=== PATIENT | female | born 1940 | race Caucasian/White ===

== ENCOUNTER → 2016-09-15 | Outpatient (REF) | payer MEDICARE ==
[2016-09-15 19:36] LABS: MEAN CORPUSCULAR HEMOGLOBIN 28.7 pg (27.0-33.0); MEAN CORPUSCULAR HGB CONC 33.4 g/dl (32.0-36.5); MEAN CORPUSCULAR VOLUME 86.2 fl (80.0-96.0); RED CELL DISTRIBUTION WIDTH 12.9 % (11.5-14.5); WHITE BLOOD COUNT 9.5 K/mm3 (4.0-10.0)
[2016-09-15 19:58] LABS: FOLATE > 24.0 NG/ML (>5.4); VITAMIN B12 LEVEL 345 PG/ML (247-911)
[2016-09-15 20:10] LABS: ALBUMIN 4.3 GM/DL (3.2-5.2); ALBUMIN/GLOBULIN RATIO 1.19 (1.00-1.93); ALKALINE PHOSPHATASE 74 U/L (45-117); ALT/SGPT 25 U/L (12-78); ANION GAP 12 MEQ/L (8-16); AST/SGOT 15 U/L (15-37); BILIRUBIN,TOTAL 0.5 MG/DL (0.2-1.0); BLOOD UREA NITROGEN 36 MG/DL (7-18); CALCIUM LEVEL 10.1 MG/DL (8.8-10.2); CARBON DIOXIDE LEVEL 25 MEQ/L (21-32); CHLORIDE LEVEL 104 MEQ/L (98-107); CREATININE FOR GFR 1.91 MG/DL (0.55-1.02); FREE T4 0.98 NG/DL (0.76-1.46); GLOMERULAR FILTRATION RATE 27.3 (>39); GLUCOSE, FASTING 88 MG/DL (83-110); POTASSIUM SERUM 4.3 MEQ/L (3.5-5.1); SODIUM LEVEL 141 MEQ/L (136-145); TOTAL PROTEIN 7.9 GM/DL (6.4-8.2)
== END ==
LOC: M SFHCADAM 16:46
PROVIDERS: ATTEND Family Medicine
DX: R53.83 Other fatigue (principal); E74.9 Disorder of carbohydrate metabolism, unspecified; K52.9 Noninfective gastroenteritis and colitis, unspecified; Z79.899 Other long term (current) drug therapy
CPT/HCPCS: 80053; 82607; 82746; 82784; 83036; 84439; 84443; 85027; 86256; G0463

== ENCOUNTER → 2016-09-30 | Outpatient (CLI) | payer MEDICARE ==
--- NOTE | 2016-09-30 14:09 | REPMRS ---
Patient History The patient states she has not had a clinical breast exam in over a year. Patient has history of skin cancer at age 31 and is nulliparous. Family history of breast cancer in mother at age 50 or over and breast cancer in maternal aunt. Benign excisional biopsy of the left breast, 1960. Digital Woman Screen Mammo: September 30, 2016 - Exam #: [id number] Bilateral CC and MLO view(s) were taken. Technologist: Morena Kirk, Technologist Prior study comparison: September 17, 2015, digital woman screen mammo performed at [facility]. September 26, 2014, digital woman screen mammo performed at [facility] [employer] [facility]. FINDINGS: There are scattered fibroglandular densities. There has been no change in the appearance of the mammogram from the prior studies. There is a mild amount of residual fibroglandular tissue which is fairly symmetric. There is no interval development of dominant mass, architectural distortion, or clustered microcalcification suggestive of malignancy. ASSESSMENT: BI-RADS/ACR category 1 mammogram. Negative. Recommendation Routine screening mammogram in 1 year (for women over age 40). This mammogram was interpreted with the aid of an FDA-approved computer-aided dectection system. Electronically Signed By: Pastor Weaver MD 09/30/16 1659
== END ==
LOC: M WHC 12:45
PROVIDERS: ATTEND Family Medicine
DX: Z12.31 Encounter for screening mammogram for malignant neoplasm of breast (principal)

== ENCOUNTER → 2016-12-02 | Outpatient (CLI) | payer MEDICARE ==
--- NOTE | 2016-12-10 07:59 | SLEEPCENT ---
DATE OF PROCEDURE: 12/02/2016 ORDERED BY: VANIA Iglesias Nocturnal polysomnography was performed for evaluation of sleep apnea syndrome symptoms in this patient with complaints of excessive somnolence and nonrestorative sleep. 9 hours and 16 minutes of data were reviewed. There were only 122 minutes of sleep identified. Sleep latency was prolonged at 124 minutes. Rapid eye movement (REM) was prolonged at 406 minutes. Sleep architecture showed poor progression. There were periods of wake during the test resulting in low sleep efficiency of 22%. The patient's EKG showed a sinus rhythm with an average heart rate of 78 beats per minute. There were some unifocal ventricular ectopic beats noted. EEG showed reasonably normal waveforms for awake and sleep. There were 36 respiratory events identified of 10 seconds in duration or greater for an apnea hypopnea index of 17.6. The events were primarily obstructive, not exclusive to sleep stage nor body posture. Arousals from respiratory events occurred 5.4 times per hour and oxygen desaturations were seen into the upper 80s. There was also some limb activity; 3 trains of 30 events were seen with a limb movement arousal index of 11.3. IMPRESSION: 1. Severe obstructive sleep apnea syndrome (G47.33). Apnea hypopnea index 17.6. 2. Periodic limb movement disorder (G47.61). Limb movement arousal index 11.3. RECOMMENDATION: The patient should be encouraged to return to the sleep disorder center for pressure therapy. In the interim, alcohol and sedative avoidance should be practiced and caution exercised during the operation of motor vehicles. Pending results of pressure therapy, interventions to reduce the frequency arousal from limb activity may also be necessary.
== END ==
LOC: M SLEEP 19:30
PROVIDERS: ATTEND Nurse Practitioner Adult Health
DX: G47.30 Sleep apnea, unspecified (principal)

== ENCOUNTER → 2017-01-05 | Outpatient (CLI) | payer MEDICARE ==
--- NOTE | 2017-01-12 09:39 | SLEEPCENT ---
DATE OF PROCEDURE: 01/05/2017 REQUESTING PROVIDER: Genet Fernandez NP INTERPRETATION: Nocturnal polysomnography was performed for the titration of pressure therapy in this patient with obstructive sleep apnea syndrome, apnea-hypopnea index of 17.6. For testing, the patient was fit with a [employer] Eson nasal mask of medium size, 4 cm of water pressure were applied to the circuit and the lights were extinguished. 8 hours and 39 minutes of data were reviewed. There were 273 minutes of sleep identified. Sleep latency was short at 18 minutes. Rapid eye movement (REM) latency was prolonged at 346 minutes. Sleep architecture improved late in the study with optimal pressure therapy but a period of wake between midnight and 2:00 resulted in reduced sleep efficiency of 53.2%. The electrocardiogram (EKG) showed a sinus rhythm with an average heart rate of 78 beats per minute. Electroencephalogram (EEG) showed normal waveforms for awake and sleep. Respiratory events were fully palliated with a CPAP to a pressure of +9. Limb activity prominent in the diagnostic study was less prominent during this test. There were two trains of 30 events. Limb movement arousal index was 9.7. IMPRESSION: 1. Obstructive sleep apnea syndrome (G47.33). 2. Periodic limb movement disorder (G47.61). RECOMMENDATIONS: Nightly use of pressure therapy at 9 cm of water should be sufficient to address the patient's respiratory events. Interventions to reduce the frequency or arousals from limb activity may be necessary to optimize sleep.
== END ==
LOC: M SLEEP 19:17
PROVIDERS: ATTEND Nurse Practitioner Adult Health
DX: G47.33 Obstructive sleep apnea (adult) (pediatric) (principal)

== ENCOUNTER → 2017-02-06 | Outpatient (REF) | payer MEDICARE ==
[2017-02-06 20:48] LABS: VITAMIN B12 LEVEL 418 PG/ML
[2017-02-06 20:49] LABS: FOLATE > 24.0 NG/ML
[2017-02-06 20:59] LABS: FERRITIN 357 NG/ML (8-252); PERCENT SATURATION 21.8 % (13.2-45.0); TOTAL IRON BINDING CAPACITY 285 UG/DL (250-450)
== END ==
LOC: M LAB REF 17:01
PROVIDERS: ATTEND Internal Medicine Nephrology
DX: D64.9 Anemia, unspecified (principal)

== ENCOUNTER → 2017-09-15 | Outpatient (REF) | payer MEDICARE ==
[2017-09-15 20:27] LABS: BASO % 0.5 % (0.0-1.0); EOS # 0.2 10^3/uL (0.0-0.50); EOS % 2.5 % (0.0-3.0); HEMATOCRIT 35.6 % (36.0-47.0); HEMOGLOBIN 11.1 g/dl (12.0-15.5); IMMATURE GRANULOCYTE % 0.4 % (0-3.0); LYMPH # 1.8 10^3/uL (1.5-4.5); LYMPH % 25.3 % (24.0-44.0); MEAN CORPUSCULAR HEMOGLOBIN 26.7 pg (27.0-33.0); MEAN CORPUSCULAR HGB CONC 31.2 g/dl (32.0-36.5); MEAN CORPUSCULAR VOLUME 85.8 fl (80.0-96.0); MONO # 0.5 10^3/uL (0.0-0.8); MONO % 6.9 % (0.0-5.0); NEUTROPHILS # 4.7 10^3/uL (1.8-7.7); NEUTROPHILS % 64.4 % (36.0-66.0); PLATELET COUNT, AUTOMATED 326 10^3/uL (150-450); RED BLOOD COUNT 4.15 10^6/uL (4.00-5.40); RED CELL DISTRIBUTION WIDTH 13.2 % (11.5-14.5); WHITE BLOOD COUNT 7.3 10^3/uL (4.0-10.0)
[2017-09-15 20:33] LABS: CHOLESTEROL LEVEL 187 MG/DL (<200); HDL CHOLESTEROL 50 MG/DL (>40); LDL CHOLESTEROL 104.2 MG/DL (<100); NON-HDL-C 137 MG/DL; TRIGLYCERIDES LEVEL 164 MG/DL (<150)
[2017-09-15 20:37] LABS: ESTIMATED AVERAGE GLUCOSE 128 MG/DL (60-110); HEMOGLOBIN A1c 6.1 %
== END ==
LOC: M SFHCADAM 14:10
DX: N18.9 Chronic kidney disease, unspecified (principal); D63.1 Anemia in chronic kidney disease; E78.2 Mixed hyperlipidemia; E74.9 Disorder of carbohydrate metabolism, unspecified; Z79.899 Other long term (current) drug therapy
CPT/HCPCS: 83036

== ENCOUNTER → 2017-10-03 | Outpatient (CLI) | payer MEDICARE | LOC: M WHC 12:52 | DX: Z12.31 Encounter for screening mammogram for malignant neoplasm of breast (principal) | CPT/HCPCS: 77067 ==

== ENCOUNTER → 2018-03-27 | Outpatient (REF) | payer MEDICARE ==
[2018-03-27 19:26] LABS: FERRITIN 336 NG/ML (8-252); IRON (FE) 62 UG/DL (50-170); PERCENT SATURATION 20.8 % (13.2-45.0); TOTAL IRON BINDING CAPACITY 298 UG/DL (250-450)
== END ==
LOC: M LAB REF 17:20
DX: N39.0 Urinary tract infection, site not specified (principal); D64.9 Anemia, unspecified
CPT/HCPCS: 83550

== ENCOUNTER → 2018-05-22 | Outpatient (REF) | payer MEDICARE ==
[2018-05-22 20:01] LABS: HEMATOCRIT 34.6 % (36.0-47.0); MEAN CORPUSCULAR HEMOGLOBIN 27.2 pg (27.0-33.0); MEAN CORPUSCULAR HGB CONC 31.8 g/dl (32.0-36.5); MEAN CORPUSCULAR VOLUME 85.4 fl (80.0-96.0); PLATELET COUNT, AUTOMATED 345 10^3/uL (150-450); RED BLOOD COUNT 4.05 10^6/uL (4.00-5.40); WHITE BLOOD COUNT 8.7 10^3/uL (4.0-10.0)
[2018-05-22 20:16] LABS: ALBUMIN 4.2 GM/DL (3.2-5.2); BILIRUBIN,TOTAL 0.6 MG/DL (0.2-1.0); CALCIUM LEVEL 9.5 MG/DL (8.8-10.2); CHOLESTEROL RISK RATIO 3.14 (<5); CREATININE FOR GFR 2.44 MG/DL (0.55-1.30); FREE T4 1.12 NG/DL (0.76-1.46); GLOMERULAR FILTRATION RATE 20.5 (>39); POTASSIUM SERUM 4.2 MEQ/L (3.5-5.1); THYROID STIMULATING HORMONE 1.45 uIU/ML (0.358-3.740); TOTAL 25(OH) VITAMIN D 26.7 NG/ML (30.0-100.0); TOTAL PROTEIN 7.5 GM/DL (6.4-8.2)
[2018-05-22 20:21] LABS: HEMOGLOBIN A1c 6.2 %
== END ==
LOC: M SFHCADAM 15:09
PROVIDERS: ATTEND Family Medicine
DX: N18.3 Chronic kidney disease, stage 3 (moderate) (principal); D63.1 Anemia in chronic kidney disease; E55.9 Vitamin D deficiency, unspecified; E74.9 Disorder of carbohydrate metabolism, unspecified; E78.2 Mixed hyperlipidemia

== ENCOUNTER → 2018-09-19 | Outpatient (CLI) | payer MEDICARE ==
--- NOTE | 2018-09-19 14:45 | REP ---
REASON: Congenital renal atrophy. COMPARISON: 07/06/2010 Multiple ultrasonographic image in the region of Morison's pouch shows some hypoechoic tissue measuring 5.7 x 2.4 x 1.4 cm. This was not imaged or present on prior exam, however, bowel was seen peristalsing in that same area on that prior exam. The left kidney is unchanged in size, shape, and echo pattern today measuring 12.3 x 5.6 x 4.3 cm. There is no solid mass or hydronephrosis. There is a 1.9 cm size cyst in the left kidney. IMPRESSION: 1. Findings on the right of uncertain etiology. I cannot confirm this represents an atrophied kidney since it is uncharacteristic for anything. A CT scan obtained on 09/18/2011 showed a small amount of tissue in the region of the right renal fossa but that measured 1.5 cm. I suspect the finding today most probably represents bowel wall or something else completely. CT is recommended so it can be compared to the prior CT. 2. Simple left renal cyst with expected compensatory hypertrophy of the left kidney. Electronically Signed by Nate Nielsen DO 09/19/2018 04:58 P
== END ==
LOC: M RAD 12:46
PROVIDERS: ATTEND Internal Medicine Nephrology
DX: N18.4 Chronic kidney disease, stage 4 (severe) (principal); N26.1 Atrophy of kidney (terminal)

== ENCOUNTER → 2018-10-08 | Outpatient (CLI) | payer MEDICARE ==
--- NOTE | 2018-10-08 14:35 | REPMRS ---
Patient History The patient states she has not had a clinical breast exam in over a year. Patient has history of skin cancer at age 31 and is nulliparous. Family history of breast cancer at age 50 or over in mother, breast cancer in maternal aunt. Benign excisional biopsy of the left breast, 1960. No Hormone Replacement Therapy. Digital Woman Screen Mammo: October 08, 2018 - Exam #: [id number] Bilateral CC and MLO view(s) were taken. Technologist: Morena Kirk, Technologist Prior study comparison: October 03, 2017, bilateral digital woman screen mammo performed at [facility]. September 30, 2016, digital woman screen mammo performed at [facility]. September 24, 2013, digital woman screen mammo performed at [facility]. FINDINGS: There are scattered fibroglandular densities. Bilateral screening digital mammogram with tomosynthesis: The patient states that there are no palpable abnormalities or other breast complaints. The patient's [place] Lifetime Breast Carcinoma Risk is: 9.1% There are scattered areas of fibroglandular density.. There is no interval development of dominant mass, areas of architectural distortion, or clustered microcalcification typical of malignancy. There are no additional findings on tomosynthesis. This mammogram is interpreted with the aid of an FDA approved computer-aided detection system. Not all cancers are identified by mammography. Negative mammogram reports should not delay biopsy if a dominant or clinically suspicious mass is present. Adenosis and dense breasts may obscure an underlying neoplasm. No significant changes when compared with prior studies. Assessment: BI-RADS/ACR category 1 mammogram. Negative Mammogram. Recommendation Routine screening mammogram in 1 year (for women over age 40). This mammogram was interpreted with the aid of an FDA-approved computer-aided dectection system. A. Negative x-ray reports should not delay biopsy if a dominant or clinically suspicious mass is present. B. Not all cancers are identified by mammography. C. Adenosis and dense breast may obscure an underlying neoplasm. Electronically Signed By: Pastor Woods M.D. 10/08/18 0862
== END ==
LOC: M WHC 13:01
PROVIDERS: ATTEND Family Medicine
DX: Z12.31 Encounter for screening mammogram for malignant neoplasm of breast (principal); Z80.3 Family history of malignant neoplasm of breast; Z85.828 Personal history of other malignant neoplasm of skin

== ENCOUNTER → 2019-05-16 | Outpatient (CLI) | payer MEDICARE ==
[2019-05-16 15:11] LABS: HEMATOCRIT 35.6 % (36.0-47.0); MEAN CORPUSCULAR HEMOGLOBIN 25.8 pg (27.0-33.0); MEAN CORPUSCULAR HGB CONC 30.9 g/dl (32.0-36.5); MEAN CORPUSCULAR VOLUME 83.4 fl (80.0-96.0); PLATELET COUNT, AUTOMATED 346 10^3/uL (150-450); RED BLOOD COUNT 4.27 10^6/uL (4.00-5.40); WHITE BLOOD COUNT 9.3 10^3/uL (4.0-10.0)
[2019-05-16 15:32] LABS: HEMOGLOBIN A1c 6.3 %
[2019-05-16 15:42] LABS: ALBUMIN 4.3 GM/DL (3.2-5.2); BILIRUBIN,TOTAL 0.6 MG/DL (0.2-1.0); CALCIUM LEVEL 9.6 MG/DL (8.8-10.2); CHOLESTEROL RISK RATIO 3.6 (<5); CREATININE FOR GFR 1.79 MG/DL (0.55-1.30); FREE T4 1.16 NG/DL (0.76-1.46); GLOMERULAR FILTRATION RATE 29.2 (>39); THYROID STIMULATING HORMONE 2.04 uIU/ML (0.358-3.740); TOTAL PROTEIN 7.5 GM/DL (6.4-8.2)
== END ==
LOC: M LAB 13:52
PROVIDERS: ATTEND Family Medicine
DX: N18.3 Chronic kidney disease, stage 3 (moderate) (principal); D63.1 Anemia in chronic kidney disease; I11.9 Hypertensive heart disease without heart failure; F32.9 Major depressive disorder, single episode, unspecified; E74.9 Disorder of carbohydrate metabolism, unspecified; E78.2 Mixed hyperlipidemia

== ENCOUNTER → 2019-06-27 | Outpatient (CLI) | payer MEDICARE ==
--- NOTE | 2019-06-27 13:05 | REP ---
Left wrist four views: There is no fracture or dislocation. There is osteoarthritis at the trapezium thumb metacarpal joint. There is osteoarthritis at the scaphoid trapezial joint. There is osteoarthritis at the capitate lunate joint. The scaphoid lunate joint is widened. This may represent ligamentous injury. There is demineralization. Impression: No fracture or dislocation. Widened scaphoid lunate joint, age indeterminate, suggesting ligamentous injury. Osteoarthritis. Demineralization. Electronically Signed by Pastor Woods MD 06/27/2019 12:55 P
== END ==
LOC: M ADAMS 11:59
PROVIDERS: ATTEND Family Medicine
DX: M19.032 Primary osteoarthritis, left wrist (principal); S63.502A Unspecified sprain of left wrist, initial encounter; X50.9XXA Other and unspecified overexertion or strenuous movements or postures, initial encounter; Y92.9 Unspecified place or not applicable

== ENCOUNTER → 2019-10-11 | Outpatient (CLI) | payer MEDICARE ==
--- NOTE | 2019-10-11 13:54 | REPMRS ---
Patient History The patient states she has not had a clinical breast exam in over a year. Family history of breast cancer at age 50 or over in mother, breast cancer in maternal aunt. Benign excisional biopsy of the left breast, 1960. No Hormone Replacement Therapy Digital Woman Screen Mammo: October 11, 2019 - Exam #: [id number] Bilateral CC and MLO view(s) were taken. Technologist: Krista Dior, Technologist Prior study comparison: October 08, 2018, bilateral digital woman screen mammo performed at [facility]. October 03, 2017, bilateral digital woman screen mammo performed at [facility]. September 30, 2016, digital woman screen mammo performed at [facility]. FINDINGS: There are scattered fibroglandular densities. The Volpara volumetric breast density category is:B. There has been no change in the appearance of the mammogram from the prior studies. There is a mild amount of scattered fibroglandular density which is fairly symmetric. There is no interval development of dominant mass, architectural distortion, or grouped microcalcification suggestive of malignancy. 3-D tomosynthesis shows no additional findings. Assessment: BI-RADS/ACR category 1 mammogram. Negative Mammogram. Recommendation Routine screening mammogram of both breasts in 1 year (for women over age 40). This patient's Lifetime Breast Cancer Risk is estimated at 8.1 %. This mammogram was interpreted with the aid of an FDA-approved computer-aided dectection system. Electronically Signed By: Roderick Sorto MD 10/11/19 8859
== END ==
LOC: M WHC 12:19
PROVIDERS: ATTEND Family Medicine
DX: Z12.31 Encounter for screening mammogram for malignant neoplasm of breast (principal); Z80.3 Family history of malignant neoplasm of breast

== ENCOUNTER → 2019-12-17 | Outpatient (REF) | payer MEDICARE | LOC: M LAB REF 18:05 | PROVIDERS: ATTEND Nurse Practitioner Family | DX: N39.0 Urinary tract infection, site not specified (principal) ==

== ENCOUNTER → 2020-02-12 | Outpatient (REF) | payer MEDICARE ==
[2020-02-12 17:11] LABS: HEMATOCRIT 33.1 % (36.0-47.0); HEMOGLOBIN 10.2 g/dl (12.0-15.5); MEAN CORPUSCULAR HEMOGLOBIN 25.8 pg (27.0-33.0); MEAN CORPUSCULAR HGB CONC 30.8 g/dl (32.0-36.5); MEAN CORPUSCULAR VOLUME 83.6 fl (80.0-96.0); PLATELET COUNT, AUTOMATED 333 10^3/uL (150-450); RED BLOOD COUNT 3.96 10^6/uL (4.00-5.40); WHITE BLOOD COUNT 6.5 10^3/uL (4.0-10.0)
[2020-02-12 17:47] LABS: CREATININE FOR GFR 1.92 MG/DL (0.55-1.30); GLOMERULAR FILTRATION RATE 26.9 (>39); POTASSIUM SERUM 5.4 MEQ/L (3.5-5.1)
[2020-02-12 17:48] LABS: BILIRUBIN,TOTAL 0.3 MG/DL (0.2-1.0); CALCIUM LEVEL 9.5 MG/DL (8.8-10.2); CHOLESTEROL RISK RATIO 3.363 (<5); FREE T4 0.97 NG/DL (0.76-1.46); THYROID STIMULATING HORMONE 1.98 uIU/ML (0.358-3.740); TOTAL PROTEIN 7.4 GM/DL (6.4-8.2)
[2020-02-12 18:08] LABS: HEMOGLOBIN A1c 5.8 %
== END ==
LOC: M SFHCADAM 14:49
PROVIDERS: ATTEND Family Medicine
DX: N18.30 Chronic kidney disease, stage 3 unspecified (principal); D63.1 Anemia in chronic kidney disease; I11.9 Hypertensive heart disease without heart failure; F32.9 Major depressive disorder, single episode, unspecified; E74.9 Disorder of carbohydrate metabolism, unspecified; E78.2 Mixed hyperlipidemia; E55.9 Vitamin D deficiency, unspecified; Z79.899 Other long term (current) drug therapy
CPT/HCPCS: 80053; 80061; 83036; 84439; 84443; 85027; G0463

== ENCOUNTER → 2020-03-03 | Outpatient (CLI) | payer MEDICARE | LOC: M LABSMTC 11:47 | PROVIDERS: ATTEND Family Medicine | DX: Z20.828 Contact with and (suspected) exposure to other viral communicable diseases (principal) ==

== ENCOUNTER → 2020-07-23 | Outpatient (REF) | payer MEDICARE ==
[2020-07-23 17:01] LABS: HEMOGLOBIN A1c 5.9 %
[2020-07-23 17:25] LABS: ALBUMIN 3.9 GM/DL (3.2-5.2); BILIRUBIN,TOTAL 0.6 MG/DL (0.2-1.0); CALCIUM LEVEL 9.4 MG/DL (8.8-10.2); CREATININE FOR GFR 1.9 MG/DL (0.55-1.30); FREE T4 1.03 NG/DL (0.76-1.46); GLOMERULAR FILTRATION RATE 27.1 (>39); POTASSIUM SERUM 4.9 MEQ/L (3.5-5.1); THYROID STIMULATING HORMONE 2.36 uIU/ML (0.358-3.740); TOTAL PROTEIN 7.3 GM/DL (6.4-8.2)
[2020-07-23 17:26] LABS: HEMATOCRIT 35.1 % (36.0-47.0); HEMOGLOBIN 10.9 g/dl (12.0-15.5); MEAN CORPUSCULAR HEMOGLOBIN 26.4 pg (27.0-33.0); MEAN CORPUSCULAR HGB CONC 31.1 g/dl (32.0-36.5); PLATELET COUNT, AUTOMATED 328 10^3/uL (150-450); RED BLOOD COUNT 4.13 10^6/uL (4.00-5.40); WHITE BLOOD COUNT 7.7 10^3/uL (4.0-10.0)
== END ==
LOC: M SFHCADAM 11:36
PROVIDERS: ATTEND Family Medicine
DX: N18.4 Chronic kidney disease, stage 4 (severe) (principal); D63.1 Anemia in chronic kidney disease; R53.82 Chronic fatigue, unspecified; E74.9 Disorder of carbohydrate metabolism, unspecified; Z79.899 Other long term (current) drug therapy
CPT/HCPCS: 80053; 83036; 84439; 84443; 85027; G0463

== ENCOUNTER → 2020-08-19 | Outpatient (REF) | payer MEDICARE ==
[2020-08-19 18:35] LABS: BACTERIA, URINE AUTO 1+ (NEGATIVE); RBC, URINE AUTO 2 /HPF (0-3); SQUAMOUS EPITHELIAL CELL UR AU 6 /HPF (0-6); TRANSITIONAL EPITHELIAL AUTO <1 /HPF; WBC, URINE AUTO 12 /HPF (0-3)
== END ==
LOC: M LAB REF 16:43
PROVIDERS: ATTEND Nurse Practitioner Family
DX: R31.9 Hematuria, unspecified (principal)

== ENCOUNTER → 2020-10-28 | Outpatient (CLI) | payer MEDICARE ==
--- NOTE | 2020-10-28 16:48 | REP ---
INDICATION: ARTHRITIS OF BOTH KNEES. Patient gives a history of recent falls. COMPARISON: Comparison left knee radiographs are from September 26, 2012.. TECHNIQUE: Ten views, 5 of each knee. Bilateral knee series. FINDINGS: There is 3 compartment moderate osteoarthritis bilaterally. This is most pronounced in the medial compartment of the left knee where there is sclerosis and joint space narrowing in addition osteophyte formation. There is bilateral patellofemoral narrowing and spur formation. On the left these changes have progressed in the interval since the 2012 prior study. There is diffuse osteopenia. No fracture is seen. A possible small amount of joint fluid is visible on the left on the lateral radiograph. IMPRESSION: No fracture or subluxation seen. There is moderate 3 compartment osteoarthritis bilaterally, most pronounced on the left.. <Electronically signed by Roderick Sorto > 10/28/20 [id number]
== END ==
LOC: M ADAMS 15:58
PROVIDERS: ATTEND Family Medicine
DX: M17.0 Bilateral primary osteoarthritis of knee (principal); M85.88 Other specified disorders of bone density and structure, other site
CPT/HCPCS: 73564; G0463

== ENCOUNTER → 2020-11-03 | Outpatient (CLI) | payer MEDICARE ==
--- NOTE | 2020-11-03 15:13 | REP ---
INDICATION: PAIN IN LT AND RT KNEE. COMPARISON: None. TECHNIQUE: Standing views of both knees are performed as requested, two views. FINDINGS: There is considerable medial compartment joint space narrowing on the left to with sclerosis and early flattening. Prominent osteophyte formation is seen medially and laterally on both sides. There is minimal joint space narrowing in the medial and lateral compartment on the right as well. There is diffuse osteopenia. IMPRESSION: Bilateral osteoarthritis. This is most pronounced involving the medial compartment of the left knee. <Electronically signed by Roderick Sorto > 11/03/20 1531
== END ==
LOC: M SOG 10:12
PROVIDERS: ATTEND Orthopaedic Surgery Adult Reconstructive Orthopaedic Surgery
DX: M25.561 Pain in right knee (principal); M25.562 Pain in left knee

== ENCOUNTER → 2020-11-19 | Outpatient (CLI) | payer MEDICARE ==
--- NOTE | 2020-11-19 16:40 | REPMRS ---
Patient History The patient states she has not had a clinical breast exam in over a year. Family history of breast cancer at age 50 or over in mother, breast cancer in maternal aunt. Benign excisional biopsy of the left breast, 1959. No Hormone Replacement Therapy Tomosynthesis is performed. Volpara breast density is b. [facility] lifetime risk of breast cancer 7.1%. Moderna vaccine 06/06/20 left arm. 07/04/20 left arm. Patient states no breast complaints today. Patient has signed MRS History Sheet. Digital Woman Screen Mammo: November 19, 2020 - Exam #: [id number] Bilateral CC and MLO view(s) were taken. Technologist: RT Javier Prior study comparison: October 11, 2019, bilateral digital woman screen mammo performed at [facility]. October 08, 2018, bilateral digital woman screen mammo performed at [facility]. FINDINGS: There are scattered fibroglandular densities. There has been no change in the appearance of the mammogram from the prior studies. There is a mild amount of residual fibroglandular tissue which is fairly symmetric. There is no interval development of dominant mass, architectural distortion, or clustered microcalcification suggestive of malignancy. Assessment: BI-RADS/ACR category 1 mammogram. Negative Mammogram. Recommendation Routine screening mammogram in 1 year (for women over age 40). This mammogram was interpreted with the aid of an FDA-approved computer-aided dectection system. Electronically Signed By: Pastor Weaver MD 11/19/20 0568
== END ==
LOC: M WHC 14:48
PROVIDERS: ATTEND Family Medicine
DX: Z12.31 Encounter for screening mammogram for malignant neoplasm of breast (principal)

== ENCOUNTER 2021-01-18 12:54 | Emergency (ER) | payer MEDICARE ==
[~2021-01-18] VITALS: Ht 170.2 cm; Wt 77.3 kg
[2021-01-18] MEDS ORDERED: META0.52 PO (13:35)
[2021-01-18] MEDS ORDERED: MAGN400C PO (13:35)
[2021-01-18] MEDS ORDERED: POTA1TAB14 (13:35)
[2021-01-18] MEDS ORDERED: CHLO125TA (13:35)
[2021-01-18] MEDS ORDERED: PRAV20TA2 (13:35)
[2021-01-18] MEDS ORDERED: BIOT1CAP2 PO (13:35)
[2021-01-18] MEDS ORDERED: RENATAB5 (13:35)
[2021-01-18] MEDS ORDERED: OMEP-218 (13:35)
[2021-01-18] MEDS ORDERED: MIRT-62 (13:35)
[2021-01-18] MEDS ORDERED: ALLO100T (13:35)
[2021-01-18] MEDS ORDERED: IRON18TA PO (13:35)
[2021-01-18] MEDS ORDERED: BAYECHW PO (13:35)
[2021-01-18] MEDS ORDERED: MECL-86 PO (13:35)
--- NOTE | 2021-01-18 13:53 | REP ---
INDICATION: Altered Mental Status COMPARISON: 01/13/2008 TECHNIQUE: Axial noncontrast images from the skull base to the thoracic inlet with coronal reformations. This CT examination was performed using the following dose reduction techniques: Automated exposure control, adjustment of mA and/or kv according to the patient's size, and use of iterative reconstruction technique. FINDINGS: Atrophy with periventricular leukomalacia and microvascular ischemic changes are appreciated. The ventricles and sulci are symmetric. Weaver-white differentiation is maintained. There is no evidence for acute intracranial hemorrhage, mass/mass effect, pathology or infarction. No extra-axial fluid collection. Calvarium is intact. Paranasal sinuses and mastoid air cells are clear. IMPRESSION: Atrophy and microvascular ischemic changes. No acute intracranial hemorrhage, infarction, or mass/mass effect. <Electronically signed by Shon Odell > 01/18/21 [id number]
[2021-01-18 14:11] LABS: BASO # 0.1 10^3/uL (0.0-0.2); BASO % 0.7 % (0.0-1.0); EOS # 0.2 10^3/uL (0.0-0.5); EOS % 3.4 % (0.0-3.0); HEMATOCRIT 34.4 % (36.0-47.0); HEMOGLOBIN 10.9 g/dl (12.0-15.5); LYMPH # 1.7 10^3/uL (1.5-5.0); LYMPH % 23.1 % (24.0-44.0); MEAN CORPUSCULAR HEMOGLOBIN 26.5 pg (27.0-33.0); MEAN CORPUSCULAR HGB CONC 31.7 g/dl (32.0-36.5); MEAN CORPUSCULAR VOLUME 83.5 fl (80.0-96.0); MONO # 0.5 10^3/uL (0.0-0.8); MONO % 6.6 % (2.0-8.0); NEUTROPHILS # 4.7 10^3/uL (1.5-8.5); NEUTROPHILS % 65.8 % (36.0-66.0); PLATELET COUNT, AUTOMATED 289 10^3/uL (150-450); RED BLOOD COUNT 4.12 10^6/uL (4.00-5.40); WHITE BLOOD COUNT 7.2 10^3/uL (4.0-10.0)
[2021-01-18 14:40] LABS: ALBUMIN 3.9 GM/DL (3.2-5.2); ALT/SGPT 15 U/L (12-78); BILIRUBIN,DIRECT 0.2 MG/DL (0.0-0.2); BILIRUBIN,TOTAL 0.6 MG/DL (0.2-1.0); CK-MB VALUE MASS < 1.0 NG/ML (<3.6); CPK CREATINE PHOSPHOKINASE 77 U/L (26-192); TOTAL PROTEIN 7.2 GM/DL (6.4-8.2); TROPONIN I < 0.02 NG/ML (< 0.10)
--- NOTE | 2021-01-18 18:51 | REPVR ---
PROCEDURE INFORMATION: Exam: MRA Head Without Contrast; Arteriography Exam date and time: 01/18/2021 5:28 PM Age: 80 years old Clinical indication: Dizziness and giddiness; Additional info: Dizziness; Loss of balance TECHNIQUE: Imaging protocol: Magnetic resonance angiography head without contrast. Exam focused on the arteries. COMPARISON: CT Head without contrast 01/18/2021 1:35 PM FINDINGS: ANTERIOR CIRCULATION: Right internal carotid artery: Intracranial segment is patent with no significant stenosis. No aneurysm. Right middle cerebral artery: No occlusion or significant stenosis. No aneurysm. Right anterior cerebral artery: Patent. No aneurysm. 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 Left internal carotid artery: Intracranial segment is patent with no significant stenosis. No aneurysm. Left middle cerebral artery: No occlusion or significant stenosis. No aneurysm. Left anterior cerebral artery: The left anterior cerebral artery is patent and dominant. No aneurysm. POSTERIOR CIRCULATION: Right vertebral artery: No occlusion or significant stenosis. No aneurysm. Left vertebral artery: No occlusion or significant stenosis. No aneurysm. Basilar artery: No occlusion or significant stenosis. No aneurysm. Right posterior cerebral artery: No occlusion or significant stenosis. No aneurysm. Left posterior cerebral artery: No occlusion or significant stenosis. No aneurysm. IMPRESSION: No proximal intracranial arterial occlusion seen. Electronically signed by: Morena Weeks On 01/18/2021 18:51:17 PM
--- NOTE | 2021-01-18 18:59 | REPVR ---
PROCEDURE INFORMATION: Exam: MR Head Without Contrast Exam date and time: 01/18/2021 5:28 PM Age: 80 years old Clinical indication: Dizziness; Additional info: Dizziness; Loss of balance TECHNIQUE: Imaging protocol: MR of the head without contrast. COMPARISON: CT Head without contrast 01/18/2021 1:35 PM FINDINGS: Brain: No acute infarct identified on the diffusion-weighted imaging. No parenchymal hemorrhage. The brain demonstrates generalized volume loss. Patchy foci of increased signal intensity in the deep and subcortical white matter on the T2 weighted imaging most likely representing chronic small vessel ischemic change. 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 A perivascular space in the right lentiform nucleus. Cerebral ventricles: The ventricles are enlarged in keeping with volume loss. Bones/joints: Unremarkable. Paranasal sinuses: Retention cyst or polyp in the left maxillary sinus. Mastoid air cells: Normal as visualized. No mastoid effusion. Orbital cavity: Unremarkable. Soft tissues: Unremarkable. IMPRESSION: No evidence of acute infarct. Electronically signed by: Morena Weeks On 01/18/2021 18:59:10 PM
--- NOTE | 2021-01-18 19:04 | REPVR ---
PROCEDURE INFORMATION: Exam: MRA Neck Without Contrast Exam date and time: 01/18/2021 5:28 PM Age: 80 years old Clinical indication: Dizziness and giddiness; Additional info: Dizziness; Loss of balance TECHNIQUE: Imaging protocol: Magnetic resonance angiography of the neck without contrast. COMPARISON: CT Head without contrast 01/18/2021 1:35 PM FINDINGS: Right common carotid artery: No stenosis. No dissection or occlusion. Right internal carotid artery: No stenosis of the extracranial segment. No dissection or occlusion. Right external carotid artery: No stenosis. No dissection or occlusion of the origin. Right vertebral artery: No stenosis. No dissection or occlusion. Left common carotid artery: No stenosis. No dissection or occlusion. Left internal carotid artery: No stenosis of the extracranial segment. No dissection or occlusion. Left external carotid artery: No stenosis. No dissection or occlusion of the origin. Left vertebral artery: No stenosis. No dissection or occlusion. IMPRESSION: No stenosis or occlusion. REFERENCES: NASCET CRITERIA. The degree of internal carotid artery stenosis is based on NASCET criteria. Normal is no stenosis. Mild is less than 50% stenosis. Moderate is 50-69% stenosis. Severe is 70% to 99% stenosis. Total occlusion is no detectable patent lumen. Electronically signed by: Morena Weeks On 01/18/2021 19:04:07 PM
[2021-01-18] MEDS ORDERED: ACETAMINOPHEN 325 MG TAB PO ONE (19:35)
[2021-01-18 19:52] VITALS: BP 155/90
[2021-01-18 20:56] LABS: RSV AMPLIFICATION NEGATIVE (NEGATIVE)
--- NOTE | 2021-01-20 17:22 | ECGEPIP ---
[facility] - ED Test Date: 2021-01-18 Pat Name: KEYUR SOLARES Department: Room: - Gender: Female [employer]er: cicijanak : 1940 Requested By: ANDREW CORONEL Order Number: [id number] Reading MD: Ivet Galarza Measurements Intervals [place] Rate: 85 P: 13 [place]: 140 QRS: -25 QRSD: 88 T: 40 QT: 372 QTc: 442 Interpretive Statements Normal sinus rhythm No prior Electronically Signed on 01-20-2021 17:22:23 EDT by Ivet Galarza
== END 2021-01-18 20:07 | disposition home or self-care (01) ==
LOC: M ED 12:54 → EDBD 12:54 → M ED 20:07
DX: R42 Dizziness and giddiness (principal); J06.9 Acute upper respiratory infection, unspecified; I10 Essential (primary) hypertension; E78.5 Hyperlipidemia, unspecified; M10.00 Idiopathic gout, unspecified site; Z79.82 Long term (current) use of aspirin; Z79.899 Other long term (current) drug therapy; Z88.1 Allergy status to other antibiotic agents; Z88.0 Allergy status to penicillin; Z91.013 Allergy to seafood; Z88.2 Allergy status to sulfonamides; Z88.8 Allergy status to other drugs, medicaments and biological substances; Z90.49 Acquired absence of other specified parts of digestive tract; Z98.890 Other specified postprocedural states

== ENCOUNTER → 2021-02-09 | Outpatient (CLI) | payer MEDICARE ==
[~2021-02-09] MED LIST: ALLO100T; BAYECHW PO; BIOT1CAP2 PO; CHLO125TA; IRON18TA PO; MAGN400C PO; MECL-86 PO; META0.52 PO; MIRT-62; OMEP-218; POTA1TAB14; PRAV20TA2; RENATAB5
== END ==
LOC: M PAIN 13:00
PROVIDERS: ATTEND Nurse Practitioner Family
DX: M25.561 Pain in right knee (principal); M25.562 Pain in left knee; G89.29 Other chronic pain; E55.9 Vitamin D deficiency, unspecified; K21.9 Gastro-esophageal reflux disease without esophagitis; G47.33 Obstructive sleep apnea (adult) (pediatric); D50.9 Iron deficiency anemia, unspecified; Z86.73 Personal history of transient ischemic attack (TIA), and cerebral infarction without residual deficits; Z86.59 Personal history of other mental and behavioral disorders; Z88.0 Allergy status to penicillin; Z88.1 Allergy status to other antibiotic agents; Z88.2 Allergy status to sulfonamides; Z88.8 Allergy status to other drugs, medicaments and biological substances; Z91.013 Allergy to seafood; Z79.82 Long term (current) use of aspirin; Z79.899 Other long term (current) drug therapy

== ENCOUNTER → 2021-05-18 | Outpatient (REF) | payer MEDICARE ==
[~2021-05-18] MED LIST changes: +OMEP-173; -OMEP-218
== END ==
LOC: M LAB REF 17:02
PROVIDERS: ATTEND Nurse Practitioner Family
DX: N18.4 Chronic kidney disease, stage 4 (severe) (principal)

== ENCOUNTER → 2021-08-13 | Outpatient (CLI) | payer MEDICARE ==
[2021-08-13 13:34] LABS: HEMATOCRIT 32.7 % (36.0-47.0); HEMOGLOBIN 10.5 g/dl (12.0-15.5); MEAN CORPUSCULAR HEMOGLOBIN 26.7 pg (27.0-33.0); MEAN CORPUSCULAR HGB CONC 32.1 g/dl (32.0-36.5); MEAN CORPUSCULAR VOLUME 83.2 fl (80.0-96.0); PLATELET COUNT, AUTOMATED 330 10^3/uL (150-450); RED BLOOD COUNT 3.93 10^6/uL (4.00-5.40); WHITE BLOOD COUNT 8.3 10^3/uL (4.0-10.0)
[2021-08-13 14:08] LABS: ALBUMIN 3.9 GM/DL (3.2-5.2); BILIRUBIN,TOTAL 0.4 MG/DL (0.2-1.0); CALCIUM LEVEL 9.6 MG/DL (8.8-10.2); CHOLESTEROL RISK RATIO 3.311 (<5); CREATININE FOR GFR 2.35 MG/DL (0.55-1.30); FREE T4 0.94 NG/DL (0.76-1.46); GLOMERULAR FILTRATION RATE 21.2 (>32); POTASSIUM SERUM 4.3 MEQ/L (3.5-5.1); THYROID STIMULATING HORMONE 2.87 uIU/ML (0.358-3.740); TOTAL PROTEIN 7.1 GM/DL (6.4-8.2)
== END ==
LOC: M LAB 13:09
PROVIDERS: ATTEND Family Medicine
DX: N18.4 Chronic kidney disease, stage 4 (severe) (principal); D63.1 Anemia in chronic kidney disease; I11.9 Hypertensive heart disease without heart failure; E74.9 Disorder of carbohydrate metabolism, unspecified; E78.2 Mixed hyperlipidemia; Z79.899 Other long term (current) drug therapy

== ENCOUNTER → 2021-11-22 | Outpatient (CLI) | payer MEDICARE | LOC: M WHC 14:20 | PROVIDERS: ATTEND Family Medicine | DX: Z12.31 Encounter for screening mammogram for malignant neoplasm of breast (principal) ==

== ENCOUNTER → 2022-09-21 | Outpatient (REF) | payer MEDICARE ==
[~2022-09-21] MED LIST changes: +POTA-298; -POTA1TAB14
[2022-09-21 16:14] LABS: HEMATOCRIT 32.1 % (36.0-47.0); HEMOGLOBIN 10.3 g/dl (12.0-15.5); MEAN CORPUSCULAR HEMOGLOBIN 27.2 pg (27.0-33.0); MEAN CORPUSCULAR HGB CONC 32.1 g/dl (32.0-36.5); MEAN CORPUSCULAR VOLUME 84.9 fl (80.0-96.0); PLATELET COUNT, AUTOMATED 334 10^3/uL (150-450); RED BLOOD COUNT 3.78 10^6/uL (4.00-5.40); WHITE BLOOD COUNT 8.1 10^3/uL (4.0-10.0)
[2022-09-21 16:21] LABS: HEMOGLOBIN A1c 5.5 % (4.0-6.0)
[2022-09-21 16:39] LABS: ALBUMIN 4.1 G/DL (3.2-5.2); BILIRUBIN,TOTAL 0.7 MG/DL (0.3-1.2); CALCIUM LEVEL 9.8 MG/DL (8.3-10.6); CHOLESTEROL RISK RATIO 2.64 (<5); CREATININE FOR GFR 2.08 MG/DL (0.55-1.30); GLOMERULAR FILTRATION RATE 24.3 (>32); HDL CHOLESTEROL 60.2 MG/DL (>40); NON-HDL-C 98.8 MG/DL; POTASSIUM SERUM 4.7 MMOL/L (3.5-5.1); TOTAL PROTEIN 7.1 G/DL (5.7-8.2)
[2022-09-21 16:42] LABS: FREE T4 1.23 NG/DL (0.89-1.76); THYROID STIMULATING HORMONE 1.4 uIU/ML (0.55-4.78)
== END ==
LOC: M SFHCADAM 14:58
PROVIDERS: ATTEND Family Medicine
DX: I11.9 Hypertensive heart disease without heart failure (principal); N18.4 Chronic kidney disease, stage 4 (severe); F32.9 Major depressive disorder, single episode, unspecified; E78.2 Mixed hyperlipidemia; E74.9 Disorder of carbohydrate metabolism, unspecified; Z79.899 Other long term (current) drug therapy

== ENCOUNTER → 2022-11-24 | Outpatient (CLI) | payer MEDICARE | LOC: M WHC 13:35 | PROVIDERS: ATTEND Family Medicine | DX: Z12.31 Encounter for screening mammogram for malignant neoplasm of breast (principal) ==

== ENCOUNTER → 2022-12-14 | Outpatient (REF) | payer MEDICARE ==
[2022-12-14 18:39] LABS: PERCENT SATURATION 11.9 % (13.2-45.0)
[2022-12-14 18:42] LABS: FERRITIN 38.5 NG/ML (7.3-270.7)
== END ==
LOC: M LAB REF 17:25
PROVIDERS: ATTEND Nurse Practitioner Family
DX: D64.9 Anemia, unspecified (principal)

== ENCOUNTER → 2023-04-13 | Outpatient (CLI) | payer MEDICARE ==
[~2023-04-13] MED LIST changes: -MIRT-62; +MIRT-88
== END ==
LOC: M ADAMS 14:20
PROVIDERS: ATTEND Family Medicine
DX: J41.1 Mucopurulent chronic bronchitis (principal)

== ENCOUNTER → 2023-07-19 | Outpatient (REF) | payer MEDICARE | LOC: M LAB REF 16:53 | PROVIDERS: ATTEND Nurse Practitioner Family | DX: R30.0 Dysuria (principal) ==

== ENCOUNTER → 2023-10-13 | Outpatient (REF) | payer MEDICARE | LOC: M SFHCADAM 14:18 | PROVIDERS: ATTEND Family Medicine | DX: I11.9 Hypertensive heart disease without heart failure (principal); D63.1 Anemia in chronic kidney disease; E74.9 Disorder of carbohydrate metabolism, unspecified; E78.2 Mixed hyperlipidemia; N18.4 Chronic kidney disease, stage 4 (severe) ==

== ENCOUNTER → 2023-10-17 | Outpatient (CLI) | payer MEDICARE | LOC: M PLALAB 14:03 → M PLARAD 14:03 | PROVIDERS: ATTEND Family Medicine | DX: M50.30 Other cervical disc degeneration, unspecified cervical region (principal); M85.80 Other specified disorders of bone density and structure, unspecified site ==

== ENCOUNTER → 2023-11-27 | Outpatient (CLI) | payer MEDICARE | LOC: M WHC 13:39 | PROVIDERS: ATTEND Family Medicine | DX: Z12.31 Encounter for screening mammogram for malignant neoplasm of breast (principal) ==

== ENCOUNTER → 2023-12-19 | Outpatient (CLI) | payer MEDICARE | LOC: M WHC 13:22 | PROVIDERS: ATTEND Family Medicine | DX: Z12.31 Encounter for screening mammogram for malignant neoplasm of breast (principal); N63.11 Unspecified lump in the right breast, upper outer quadrant | CPT/HCPCS: 76642; 77065; G0279 ==

== ENCOUNTER → 2023-12-21 | Outpatient (CLI) | payer MEDICARE | LOC: M WHC 10:05 | PROVIDERS: ATTEND Family Medicine | DX: R92.8 Other abnormal and inconclusive findings on diagnostic imaging of breast (principal); Z53.9 Procedure and treatment not carried out, unspecified reason ==

== ENCOUNTER → 2024-01-04 | Outpatient (CLI) | payer MEDICARE ==
[2024-01-04 10:58] VITALS: TEMP 98.5
[2024-01-04 11:50] VITALS: BP 152/76; O2SAT 98
== END ==
LOC: M WHCPRO 10:56
PROVIDERS: ATTEND Family Medicine
DX: R92.8 Other abnormal and inconclusive findings on diagnostic imaging of breast (principal); N63.11 Unspecified lump in the right breast, upper outer quadrant; C50.411 Malignant neoplasm of upper-outer quadrant of right female breast

== ENCOUNTER → 2024-02-22 | Outpatient (REF) | payer MEDICARE ==
[2024-02-22 17:12] LABS: ALBUMIN 3.7 G/DL (3.2-5.2); BILIRUBIN,TOTAL 0.5 MG/DL (0.3-1.2); CALCIUM LEVEL 9.5 MG/DL (8.3-10.6); CHOLESTEROL RISK RATIO 2.38 (<5); CREATININE FOR GFR 1.84 MG/DL (0.55-1.30); HDL CHOLESTEROL 62.4 MG/DL (>40); LDL CHOLESTEROL 71.6 MG/DL (<100); NON-HDL-C 86.6 MG/DL; POTASSIUM SERUM 3.8 MMOL/L (3.5-5.1); TOTAL PROTEIN 7.1 G/DL (5.7-8.2)
[2024-02-22 17:18] LABS: INR 1.12; PARTIAL THROMBOPLASTIN TIME 35.2 SECONDS (24.8-34.2); PROTHROMBIN TIME 14.7 SECONDS (12.5-14.5)
[2024-02-22 17:33] LABS: MEAN CORPUSCULAR HEMOGLOBIN 27.4 pg (27.0-33.0); MEAN CORPUSCULAR HGB CONC 31.3 g/dl (32.0-36.5); MEAN CORPUSCULAR VOLUME 87.7 fl (80.0-96.0); PLATELET COUNT, AUTOMATED 292 10^3/uL (150-450); RED BLOOD COUNT 3.65 10^6/uL (4.00-5.40); WHITE BLOOD COUNT 7.5 10^3/uL (4.0-10.0)
[2024-02-22 18:03] LABS: HEMOGLOBIN A1c 5.4 % (4.0-6.0)
== END ==
LOC: M SFHCADAM 14:32
PROVIDERS: ATTEND Family Medicine
DX: Z01.818 Encounter for other preprocedural examination (principal); I11.9 Hypertensive heart disease without heart failure; D63.1 Anemia in chronic kidney disease; E74.9 Disorder of carbohydrate metabolism, unspecified; E78.2 Mixed hyperlipidemia; Z79.899 Other long term (current) drug therapy

== ENCOUNTER → 2024-05-01 | Outpatient (CLI) | payer MEDICARE | LOC: M ONCR 09:34 | PROVIDERS: ATTEND General Practice | DX: C50.411 Malignant neoplasm of upper-outer quadrant of right female breast (principal); Z90.11 Acquired absence of right breast and nipple; Z17.1 Estrogen receptor negative status [ER-]; Z91.013 Allergy to seafood; Z88.0 Allergy status to penicillin; Z88.1 Allergy status to other antibiotic agents; Z88.8 Allergy status to other drugs, medicaments and biological substances; Z88.2 Allergy status to sulfonamides; Z79.82 Long term (current) use of aspirin; Z79.899 Other long term (current) drug therapy; Z90.710 Acquired absence of both cervix and uterus; Z90.49 Acquired absence of other specified parts of digestive tract; Z80.3 Family history of malignant neoplasm of breast; Z80.1 Family history of malignant neoplasm of trachea, bronchus and lung ==

== ENCOUNTER → 2024-05-01 | Outpatient (CLI) | payer MEDICARE | LOC: M RAD 09:02 | PROVIDERS: ATTEND Internal Medicine Medical Oncology | DX: M25.512 Pain in left shoulder (principal); C50.919 Malignant neoplasm of unspecified site of unspecified female breast | CPT/HCPCS: 78306; A9503; G0463 ==

== ENCOUNTER 2024-05-10 14:01 | Outpatient (RCR) | payer MEDICARE ==
[2024-05-17] MEDS ORDERED: LETR2.5T2 PO (13:56)
== END 2024-05-17 ==
LOC: M ONCR 14:01
PROVIDERS: ATTEND General Practice
DX: Z51.0 Encounter for antineoplastic radiation therapy (principal); C50.411 Malignant neoplasm of upper-outer quadrant of right female breast

== ENCOUNTER → 2024-05-27 | Outpatient (CLI) | payer MEDICARE ==
[~2024-05-27] MED LIST changes: +LETR2.5T2 PO
== END ==
LOC: M WHC 14:02
PROVIDERS: ATTEND Internal Medicine Medical Oncology
DX: Z13.820 Encounter for screening for osteoporosis (principal); M85.852 Other specified disorders of bone density and structure, left thigh; M85.851 Other specified disorders of bone density and structure, right thigh

== ENCOUNTER → 2024-06-14 | Outpatient (RCR) | payer MEDICARE | LOC: M ONCR 05-28 14:16 | PROVIDERS: ATTEND General Practice | DX: Z51.0 Encounter for antineoplastic radiation therapy (principal); C50.411 Malignant neoplasm of upper-outer quadrant of right female breast ==

== ENCOUNTER 2024-07-01 14:13 | Outpatient (RCR) | payer MEDICARE | END 2024-07-15 | LOC: M ONCR 14:13 | PROVIDERS: ATTEND General Practice | DX: Z51.0 Encounter for antineoplastic radiation therapy (principal); C50.411 Malignant neoplasm of upper-outer quadrant of right female breast ==

== ENCOUNTER → 2025-01-01 | Outpatient (CLI) | payer MEDICARE ==
[~2025-01-01] MED LIST changes: -PRAV20TA2; +PRAV20TA78
== END ==
LOC: M ONCR 14:12
PROVIDERS: ATTEND General Practice
DX: C50.411 Malignant neoplasm of upper-outer quadrant of right female breast (principal); Z17.0 Estrogen receptor positive status [ER+]; Z17.21 Progesterone receptor positive status; Z17.32 Human epidermal growth factor receptor 2 negative status; Z79.811 Long term (current) use of aromatase inhibitors; Z79.82 Long term (current) use of aspirin; Z79.899 Other long term (current) drug therapy; Z90.11 Acquired absence of right breast and nipple; Z92.3 Personal history of irradiation; Z88.0 Allergy status to penicillin; Z88.1 Allergy status to other antibiotic agents; Z88.2 Allergy status to sulfonamides; Z88.8 Allergy status to other drugs, medicaments and biological substances; Z91.013 Allergy to seafood

== ENCOUNTER → 2025-01-09 | Outpatient (CLI) | payer MEDICARE | LOC: M WHC 08:01 | PROVIDERS: ATTEND General Practice | DX: Z12.31 Encounter for screening mammogram for malignant neoplasm of breast (principal); C50.411 Malignant neoplasm of upper-outer quadrant of right female breast; Z90.11 Acquired absence of right breast and nipple | CPT/HCPCS: 77067; G0279 ==

== ENCOUNTER 2025-02-28 14:49 | Emergency (ER) | payer MEDICARE ==
[~2025-02-28] VITALS: Ht 167.6 cm; Wt 56.4 kg
[~2025-02-28 14:49] MED LIST changes: -ALLO100T; +ALLO100T PO; -CHLO125TA; +CHLO125TA PO; -OMEP-173; +OMEP-173 PO; -POTA-298; +POTA-298 PO; -PRAV20TA78; +PRAV20TA78 PO; -RENATAB5; +RENATAB5 PO
[2025-02-28 15:31] LABS: BASO # 0.1 10^3/uL (0.0-0.2); BASO % 1.0 % (0.0-1.0); EOS # 0.2 10^3/uL (0.0-0.5); EOS % 3.3 % (0.0-3.0); LYMPH # 0.9 10^3/uL (1.5-5.0); LYMPH % 17.8 % (24.0-44.0); MONO # 0.5 10^3/uL (0.0-0.8); MONO % 9.5 % (2.0-8.0); NEUTROPHILS # 3.3 10^3/uL (1.5-8.5); NEUTROPHILS % 68.2 % (36.0-66.0); PLATELET COUNT, AUTOMATED 252 10^3/uL (150-450)
[2025-02-28 15:59] LABS: INR 1.13
[2025-02-28 16:00] LABS: CALCIUM LEVEL 9.2 MG/DL (8.3-10.6); CARBON DIOXIDE LEVEL 29.0 MMOL/L (20-31); CHLORIDE LEVEL 100.0 MMOL/L (98-107); CREATININE FOR GFR 2.03 MG/DL (0.55-1.30); GLOMERULAR FILTRATION RATE 23.9 (>32); MAGNESIUM LEVEL 2.3 MG/DL (1.8-2.4); POTASSIUM SERUM 3.8 MMOL/L (3.5-5.1); SODIUM LEVEL 140.0 MMOL/L (136-145)
[2025-02-28] MEDS ORDERED: TROS20TA3 PO (18:20)
[2025-02-28] MEDS ORDERED: IRON65TA2 PO (18:20)
[2025-02-28] MEDS ORDERED: D31000TA PO (18:25)
[2025-02-28] MEDS ORDERED: ASCO250T20 PO (18:26)
[2025-02-28] MEDS ORDERED: HOME MED LIST COMPLETE! XX SCH (18:30)
[2025-02-28 21:45] VITALS: TEMP 98.5
[2025-02-28 22:12] VITALS: BP 138/65; O2SAT 98
== END 2025-02-28 22:14 | disposition home or self-care (01) ==
LOC: M ED 14:49
DX: R20.0 Anesthesia of skin (principal); H81.4 Vertigo of central origin; I10 Essential (primary) hypertension; C50.919 Malignant neoplasm of unspecified site of unspecified female breast; G47.33 Obstructive sleep apnea (adult) (pediatric); K21.9 Gastro-esophageal reflux disease without esophagitis; E55.9 Vitamin D deficiency, unspecified; D50.9 Iron deficiency anemia, unspecified; N18.4 Chronic kidney disease, stage 4 (severe); Z88.0 Allergy status to penicillin; Z88.1 Allergy status to other antibiotic agents; Z88.8 Allergy status to other drugs, medicaments and biological substances; Z91.013 Allergy to seafood; Z79.899 Other long term (current) drug therapy; Z86.73 Personal history of transient ischemic attack (TIA), and cerebral infarction without residual deficits